=== PATIENT | male | born 1965 | race Hispanic/Latino ===

== ENCOUNTER 2017-03-27 16:04 | Emergency (ER) | payer OTHER, BC ==
[2017-03-27 16:04] VITALS: BMI 26.4
[2017-03-27 16:13] VITALS: BP 173/87; PULSE 88; RESP 16; TEMP 97.9; O2SAT 98
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
== END 2017-03-27 17:53 | disposition home or self-care (01) ==
LOC: ED 16:04
DX: S39.012A Strain of muscle, fascia and tendon of lower back, initial encounter (principal); S60.812A Abrasion of left wrist, initial encounter; V43.52XA Car driver injured in collision with other type car in traffic accident, initial encounter